=== PATIENT | male | born 1975 | race Caucasian/White ===

== ENCOUNTER 2022-09-14 09:26 | Outpatient (CLI) | payer OTHER ==
--- NOTE | 2022-09-14 10:42 | XRAY Report ---
PROCEDURE: Shoulder 3 View BILAT INDICATIONS: BILATERAL SHOULDER PAIN TECHNIQUE: 3 views of the shoulder were acquired. COMPARISON: None. FINDINGS: Bones: No fractures or dislocations. Mild degenerative change at the right shoulder AC and glenohum eral joints. Moderate left shoulder AC joint DJD. Mild left shoulder glenohumeral joint degenerative change. No suspicious bony lesions. Visualized ribs appear intact. Soft tissues: No suspicious soft tissue calcifications. 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 Most pronounced at the left AC joint. If clinically indicated MRI could be considered for further evaluation. Reviewed by: Jackson Huntley MD on 09/14/2022 10:41 AM [facility] Approved by: Jackson Huntley MD on 09/14/2022 10:41 AM PST Station ID: [id number]
== END 2022-09-14 09:27 | disposition home or self-care (01) ==
LOC: DI.S 09:26
PROVIDERS: ATTEND Nurse Practitioner Family
DX: M19.011 Primary osteoarthritis, right shoulder (principal); M19.012 Primary osteoarthritis, left shoulder

== ENCOUNTER 2024-05-07 08:30 | Outpatient (CLI) | payer OTHER ==
--- NOTE | 2024-05-07 15:48 | XRAY Report ---
PROCEDURE: Shoulder 2+V BL INDICATIONS: BILATERAL SHOULDER PAIN TECHNIQUE: 3 views of the shoulder were acquired. COMPARISON: 09/14/2022 FINDINGS: Left side: Mild to moderate degenerative changes, with a particularly prominent osteophyte at the AC joint. No acute displaced fracture. Findings are similar to prior. No suspicious calcifications. Right side: Mild to moderate degenerative changes. No acute displaced fracture or dislocation. Possib le calcific tendinopathy. No suspicious calcifications elsewhere IMPRESSION: Similar bilateral mild to moderate arthrosis. If there is high concern for further derangement, consi gwyn MRI evaluation. Reviewed by: Preston Vvias MD on 05/07/2024 3:47 PM PDT Approved by: Preston Vivas MD on 05/07/2024 3:47 PM PDT Station ID: [id number]
== END 2024-05-07 08:31 | disposition home or self-care (01) ==
LOC: DI.S 08:30
PROVIDERS: ATTEND Orthopaedic Surgery
DX: M25.512 Pain in left shoulder (principal); M25.511 Pain in right shoulder; M19.011 Primary osteoarthritis, right shoulder; M19.012 Primary osteoarthritis, left shoulder